=== PATIENT | male | born 1985 | race Caucasian/White ===

== ENCOUNTER → 2021-10-01 12:04 | Outpatient (CLI) | payer SELFPAY ==
[2021-10-01 13:49] LABS: Alanine Aminotransferase 20 IU/L (<50); Albumin 4.7 g/dL (3.5-5.0); Albumin Globulin Ratio 1.5 (1.0-2.8); Alkaline Phosphatase 71 U/L (38-126); Aspartate Aminotransferase 27 IU/L (17-59); BUN Creatinine Ratio 13.6 (6-22); Bilirubin Total 0.6 mg/dL (0.2-1.3); Blood Urea Nitrogen 11 mg/dL (9-20); Calcium 9.5 mg/dL (8.4-10.2); Carbon Dioxide 30 mmol/L (22-32); Chloride 105 mmol/L (98-107); Creatine Kinase 65 U/L (55-170); Estimated Glomerular Filt Rate > 60.0 mL/min (>60); Globulin 3.1 g/dL (1.7-4.1); Glucose 122 mg/dL (70-100); HEMOLYSIS < 15 (0-50); Potassium 3.4 mmol/L (3.4-5.1); Sodium 141 mmol/L (137-145); Total Protein 7.8 g/dL (6.3-8.2)
[2021-10-01 14:01] LABS: Troponin I < 0.012 ng/mL (0.01-0.034)
[2021-10-01 14:20] LABS: TSH w/ Reflex to FT4 2.02 uIU/mL (0.47-4.68)
== END ==
PROVIDERS: Referring Provider Physician Assistant; Visit Provider Physician Assistant
DX: R00.0 Tachycardia, unspecified (principal)
CPT/HCPCS: 36415; 80053; 82550; 84443; 84484

== ENCOUNTER 2021-11-02 11:54 | Emergency (ER) | payer OTHER, SELFPAY ==
[2021-11-02 12:17] VITALS: PULSE 102; RESP 19; O2SAT 95
[2021-11-02 12:30] VITALS: BP 132/85; BP 132/95; PULSE 104; PULSE 108; RESP 18; RESP 24; TEMP 37.3; O2SAT 96; BMI 23.7
--- NOTE | 2021-11-02 12:31 | DI.RAD.S_ITS ---
PROCEDURE: XR CHEST 1V INDICATIONS: chest pain TECHNIQUE: One view of the chest was acquired. COMPARISON: None. FINDINGS: Surgical changes and devices: None. Lungs and pleura: Biapical opacities are likely scars. No pleural effusions or pneumothorax. Mediastinum: Mediastinal contours appear normal. Heart size is normal. Bones and chest wall: No suspicious bony lesions. Overlying soft tissues appear unremarkable. IMPRESSION: 1. No acute cardiopulmonary disease. 2. Biapical scars. Dictated by: Manuelito Shelley M.D. on 11/02/2021 at 12:50 Approved by: Manuelito Shelley M.D. on 11/02/2021 at 12:51
[2021-11-02 13:00] VITALS: BP 146/92; PULSE 94; RESP 17; O2SAT 97
[2021-11-02 13:11] LABS: INR 1.2 (0.9-1.3); Prothrombin Time 13.7 SECONDS (10.1-12.7)
[2021-11-02 13:14] LABS: PTT Partial Thromboplastin Tim 35 SECONDS (26.4-36.2)
[2021-11-02 13:17] LABS: Hematocrit 43.8 % (41-53); Mean Corpuscular HGB Conc 34.2 % (30-36); Mean Corpuscular Hemoglobin 29.9 PG (26-34); Mean Corpuscular Volume 87.4 fL (80-100); Platelet Count 231 X10^3/uL (150-400); Red Blood Cell Count 5.01 X10^6/uL (4.5-5.9); Red Cell Distribution Width 14.2 % (11.6-14.8); White Blood Cell Count 7.4 X10^3/uL (4.5-11.0)
[2021-11-02 13:18] LABS: Alanine Aminotransferase 20 IU/L (<50); Albumin 4.3 g/dL (3.5-5.0); Albumin Globulin Ratio 1.4 (1.0-2.8); Alkaline Phosphatase 72 U/L (38-126); Aspartate Aminotransferase 30 IU/L (17-59); BUN Creatinine Ratio 14.1 (6-22); Bilirubin Total 0.2 mg/dL (0.2-1.3); Blood Urea Nitrogen 11 mg/dL (9-20); Calcium 9.4 mg/dL (8.4-10.2); Carbon Dioxide 30 mmol/L (22-32); Chloride 101 mmol/L (98-107); Estimated Glomerular Filt Rate > 60.0 mL/min (>60); Globulin 3.1 g/dL (1.7-4.1); Glucose 114 mg/dL (70-100); HEMOLYSIS 28 (0-50); Sodium 138 mmol/L (137-145); Total Protein 7.4 g/dL (6.3-8.2)
[2021-11-02 13:24] LABS: COVID19 -Nasal RAPID POSITIVE (Negative)
[2021-11-02 13:25] LABS: Add Manual Diff / Slide Review YES
[2021-11-02 13:26] LABS: Alanine Aminotransferase 19 IU/L (<50); Albumin 4.2 g/dL (3.5-5.0); Albumin Globulin Ratio 1.6 (1.0-2.8); Alkaline Phosphatase 73 U/L (38-126); Aspartate Aminotransferase 27 IU/L (17-59); BUN Creatinine Ratio 15.2 (6-22); Bilirubin Total 0.2 mg/dL (0.2-1.3); Blood Urea Nitrogen 12 mg/dL (9-20); Calcium 9.4 mg/dL (8.4-10.2); Carbon Dioxide 30 mmol/L (22-32); Chloride 101 mmol/L (98-107); Creatine Kinase 43 U/L (55-170); Estimated Glomerular Filt Rate > 60.0 mL/min (>60); Globulin 2.7 g/dL (1.7-4.1); Glucose 112 mg/dL (70-100); HEMOLYSIS 17 (0-50); Lipase 95 U/L (23-300); Magnesium 2.2 mg/dL (1.6-2.3); Potassium 4.2 mmol/L (3.4-5.1); Sodium 138 mmol/L (137-145); Total Protein 6.9 g/dL (6.3-8.2)
[2021-11-02 13:30] VITALS: BP 149/92; PULSE 91; O2SAT 96
[2021-11-02 13:36] LABS: Troponin I < 0.012 ng/mL (0.01-0.034)
[2021-11-02 13:58] LABS: Neutrophils Absolute Manual 5402 /uL (3000-5900); Total Cells Counted 100
[2021-11-02 13:59] LABS: RBC Morphology Normal Morphology
[2021-11-02 14:00] VITALS: BP 130/82; PULSE 90; RESP 13; O2SAT 95
--- NOTE | 2021-11-10 14:15 | ED_ITS ---
HPI - Syncope <Sinai Dean PA-C - Last Filed: 11/10/21 14:27> General Chief Complaint: Syncope Stated Complaint: Anemic, Passed Out Time Seen by Provider: 11/02/21 12:08 Source: patient Mode of arrival: Ambulatory Limitations: no limitations History of Present Illness HPI narrative: 36-year-old undomiciled male presents to the ED status post a syncopal episode from this morning. Patient states he was on the toilet, having a bowel movement, when he felt sweaty, tunnel visioned, nauseous, lightheaded. He endorses that he passed out for a few seconds before regaining consciousness. Patient states he has not been eating or drinking very well over the past few days. Patient denies fever, chills, chest pain, shortness of breath, cough, numbness, tingling, weakness. Patient states that he has been having multiple intermittent episodes of palpitations, tachycardia since August 2021. in the ED, patient denies having palpitations or tachycardia. Related Data Home Medications Medication Instructions Recorded Confirmed albuterol sulfate 90 mcg/actuation 1 inh INHALATION Q4-6H PRN 09/30/21 09/30/21 breath activated powder inhaler Allergies Allergy/AdvReac Type Severity Reaction Status Date / Time fentanyl Allergy Verified 11/02/21 12:29 Review of Systems <Sinai Dean PA-C - Last Filed: 11/10/21 14:27> Review of Systems ROS Unobtainable: All systems reviewed & are unremarkable except as noted in HPI and below Constitutional Constitutional: Denies chills, Denies fatigue, Denies fever(s), Denies frequent falls, Denies lethargy and Denies weakness Comments: Syncope Eyes Eyes: Denies change in vision, Denies eye discharge, Denies irritation and Denies loss of vision ENT Ears, Nose, Mouth, and Throat: Denies change in voice, Denies dizziness, Denies neck pain, Denies sore throat and Denies throat swelling Cardiovascular Cardiovascular: Denies chest pain, Reports rapid heart rate, Denies irregular heart rhythm, Reports lightheadedness, Denies palpitations, Denies dyspnea, Denies dyspnea on exertion and Denies orthopnea Respiratory Respiratory: Denies cough, Denies dyspnea, Denies dyspnea on exertion and Denies wheezing Gastrointestinal Gastrointestinal: Denies abdominal pain, Denies change in bowel habits, Denies diarrhea, Reports nausea and Denies vomiting Genitourinary Genitourinary: Denies hematuria, Denies flank pain, Denies urinary incontinence and Denies urinary urgency Musculoskeletal Musculoskeletal: Denies back pain, Denies muscle weakness, Denies neck pain, Denies numbness and Denies tingling Integumentary/Breasts Skin/Breast: Denies pruritus, Denies erythema, Denies rash and Denies wounds Neurologic Neurologic: Denies behavioral changes, Denies confusion, Denies dizziness, Denies frequent falls, Denies loss of vision, Denies numbness, Denies tingling and Denies weakness Psychiatric Psychiatric: Denies anxiety, Denies behavioral changes, Denies confusion, Denies depression, Denies homicidal ideation and Denies suicidal ideation Endocrine Endocrine: Denies fatigue, Denies flushing and Denies palpitations Hematologic/Lymphatic Hematologic/Lymphatic: Denies easy bruising Allergic/Immunologic Allergic/Immunologic: Denies urticaria, Denies throat swelling and Denies wheezing Patient History <Sinai Dean PA-C - Last Filed: 11/10/21 14:27> Medical History Tachycardia Social History Smoking Status: Former smoker Smoking Status: Former smoker Substance Use Type: does not use Exam <Sinai Dean PA-C - Last Filed: 11/10/21 14:27> Initial Vital Signs Initial Vital Signs: Vital Signs Pulse Rate 102 H 11/02/21 12:17 Respiratory Rate 19 11/02/21 12:17 Pulse Oximetry 95 11/02/21 12:17 Const General: cooperative, healthy appearing and comfortable [facility] Head: normal to inspection Eyes General: appearance normal, both eyes and all related structures Neck Neck: normal visual inspection Chest Chest: normal inspection of the chest Resp Effort & Inspection: normal respiratory effort Auscultation: clear to auscultation bilaterally Cardio Rate: regular rate Rhythm: regular rhythm GI Inspection: normal to inspection Other: abdomen is soft, nontender to palpation, nondistended. No CVA tenderness. General: No CVA tenderness Skin General: no rashes or lesions noted Neuro General: patient alert, patient awake and patient oriented x3 <Amanda Puri DO - Last Filed: 11/22/21 08:16> Initial Vital Signs Initial Vital Signs: Vital Signs Pulse Rate 102 H 11/02/21 12:17 Respiratory Rate 19 11/02/21 12:17 Pulse Oximetry 95 11/02/21 12:17 MDM - Syncope <Sinai Dean PA-C - Last Filed: 11/10/21 14:27> Medical Records Attestation: I reviewed the patient's medical records. Lab Data Attestation: I reviewed the patient's lab results. Lab results narrative: Labs within normal limits Result diagrams: 11/02/21 12:55 11/02/21 12:55 Labs: Lab Results 11/02/21 11/02/21 11/02/21 Range/Units 12:14 12:55 12:55 WBC 7.4 (4.5-11.0) X10^3/uL RBC 5.01 (4.5-5.9) X10^6/uL Hgb 15.0 (13.5-17.5) g/dL Hct 43.8 (41-53) % MCV 87.4 (80-100) fL MCH 29.9 (26-34) PG MCHC 34.2 (30-36) % RDW 14.2 (11.6-14.8) % Plt Count 231 (150-400) X10^3/uL Neut % (Auto) Not Reportable Lymph % (Auto) Not Reportable Mcdowell % (Auto) Not Reportable Eos % (Auto) Not Reportable Baso % (Auto) Not Reportable Lymph # (Auto) Not Reportable Mcdowell # (Auto) Not Reportable Baso # (Auto) Not Reportable Total Counted 100 Seg Neutrophils % 73.0 H (38-70) % Lymphocytes % (Manual) 12.0 L (25-45) % Monocytes % (Manual) 14.0 H (2-11) % Basophils % (Manual) 1.0 (0-1) % Neutrophils # (Manual) 5402 (0080-9838) /uL RBC Morphology Normal morphology PT (10.1-12.7) SECONDS INR (0.9-1.3) APTT (26.4-36.2) SECONDS Sodium 138 (137-145) mmol/L Potassium 4.2 (3.4-5.1) mmol/L Chloride 101 (98-107) mmol/L Carbon Dioxide 30 (22-32) mmol/L BUN 12 (9-20) mg/dL Creatinine 0.79 (0.66-1.25) mg/dL Estimated GFR > 60.0 (>60) mL/min BUN/Creatinine Ratio 15.2 (6-22) Glucose 112 H (70-100) mg/dL Calcium 9.4 (8.4-10.2) mg/dL Magnesium 2.2 (1.6-2.3) mg/dL Total Bilirubin 0.2 (0.2-1.3) mg/dL AST 27 (17-59) IU/L ALT 19 (<50) IU/L Alkaline Phosphatase 73 (38-126) U/L Total Creatine Kinase 43 L (55-170) U/L CK-MB (CK-2) TNP CK-MB (CK-2) Rel Index TNP Troponin I < 0.012 (0.01-0.034) ng/mL Total Protein 6.9 (6.3-8.2) g/dL Albumin 4.2 (3.5-5.0) g/dL Globulin 2.7 (1.7-4.1) g/dL Albumin/Globulin Ratio 1.6 (1.0-2.8) Lipase 95 (23-300) U/L SARS-CoV-2 (PCR) Positive H (Negative) Blood Type Rho(D) Type Antibody Screen 11/02/21 11/02/21 11/02/21 Range/Units 12:55 12:55 12:55 WBC (4.5-11.0) X10^3/uL RBC (4.5-5.9) X10^6/uL Hgb (13.5-17.5) g/dL Hct (41-53) % MCV (80-100) fL MCH (26-34) PG MCHC (30-36) % RDW (11.6-14.8) % Plt Count (150-400) X10^3/uL Neut % (Auto) Lymph % (Auto) Mcdowell % (Auto) Eos % (Auto) Baso % (Auto) Lymph # (Auto) Mcdowell # (Auto) Baso # (Auto) Total Counted Seg Neutrophils % (38-70) % Lymphocytes % (Manual) (25-45) % Monocytes % (Manual) (2-11) % Basophils % (Manual) (0-1) % Neutrophils # (Manual) (3241-9444) /uL RBC Morphology PT 13.7 H (10.1-12.7) SECONDS INR 1.2 (0.9-1.3) APTT 35 (26.4-36.2) SECONDS Sodium 138 (137-145) mmol/L Potassium 4.0 (3.4-5.1) mmol/L Chloride 101 (98-107) mmol/L Carbon Dioxide 30 (22-32) mmol/L BUN 11 (9-20) mg/dL Creatinine 0.78 (0.66-1.25) mg/dL Estimated GFR > 60.0 (>60) mL/min BUN/Creatinine Ratio 14.1 (6-22) Glucose 114 H (70-100) mg/dL Calcium 9.4 (8.4-10.2) mg/dL Magnesium (1.6-2.3) mg/dL Total Bilirubin 0.2 (0.2-1.3) mg/dL AST 30 (17-59) IU/L ALT 20 (<50) IU/L Alkaline Phosphatase 72 (38-126) U/L Total Creatine Kinase (55-170) U/L CK-MB (CK-2) CK-MB (CK-2) Rel Index Troponin I (0.01-0.034) ng/mL Total Protein 7.4 (6.3-8.2) g/dL Albumin 4.3 (3.5-5.0) g/dL Globulin 3.1 (1.7-4.1) g/dL Albumin/Globulin Ratio 1.4 (1.0-2.8) Lipase (23-300) U/L SARS-CoV-2 (PCR) (Negative) Blood Type Cancelled Rho(D) Type Cancelled Antibody Screen Cancelled Imaging Data Chest x-ray: Radiologist's Impression: PROCEDURE:? XR CHEST 1V ? INDICATIONS:? chest pain ? TECHNIQUE:? One view of the chest was acquired.? ? COMPARISON:? None. ? FINDINGS:? ? Surgical changes and devices:? None.? ? Lungs and pleura:? Biapical opacities are likely scars.? No pleural effusions or pneumothorax.? ? Mediastinum:? Mediastinal contours appear normal.? Heart size is normal.? ? Bones and chest wall:? No suspicious bony lesions.? Overlying soft tissues appear unremarkable.? ? IMPRESSION:? ? 1. No acute cardiopulmonary disease. 2. Biapical scars. ? ? Dictated by: Manuelito Shelley M.D. on 11/02/2021 at 12:50 ? ? ECG Data Interpretation: Nonspecific ST-T changes. regular rate, rhythm MDM Narrative Medical decision making narrative: 36-year-old undomiciled male presents to the ED status post a syncopal episode from this morning. concern for ACS versus arrhythmia versus infection versus COVID-19 infection. will order labs, EKG, chest x-ray, COVID-19 test. labs within normal limits. COVID-19 positive. Patient discharged home with ED return precautions, isolation / quarantine guidelines. Patient verbalized understanding. <Amanda Puri, DO - Last Filed: 11/22/21 08:16> Lab Data Labs: Lab Results 11/02/21 11/02/21 11/02/21 Range/Units 12:14 12:55 12:55 WBC 7.4 (4.5-11.0) X10^3/uL RBC 5.01 (4.5-5.9) X10^6/uL Hgb 15.0 (13.5-17.5) g/dL Hct 43.8 (41-53) % MCV 87.4 (80-100) fL MCH 29.9 (26-34) PG MCHC 34.2 (30-36) % RDW 14.2 (11.6-14.8) % Plt Count 231 (150-400) X10^3/uL Neut % (Auto) Not Reportable Lymph % (Auto) Not Reportable Mcdowell % (Auto) Not Reportable Eos % (Auto) Not Reportable Baso % (Auto) Not Reportable Lymph # (Auto) Not Reportable Mcdowell # (Auto) Not Reportable Baso # (Auto) Not Reportable Total Counted 100 Seg Neutrophils % 73.0 H (38-70) % Lymphocytes % (Manual) 12.0 L (25-45) % Monocytes % (Manual) 14.0 H (2-11) % Basophils % (Manual) 1.0 (0-1) % Neutrophils # (Manual) 5402 (6456-3777) /uL RBC Morphology Normal morphology PT (10.1-12.7) SECONDS INR (0.9-1.3) APTT (26.4-36.2) SECONDS Sodium 138 (137-145) mmol/L Potassium 4.2 (3.4-5.1) mmol/L Chloride 101 (98-107) mmol/L Carbon Dioxide 30 (22-32) mmol/L BUN 12 (9-20) mg/dL Creatinine 0.79 (0.66-1.25) mg/dL Estimated GFR > 60.0 (>60) mL/min BUN/Creatinine Ratio 15.2 (6-22) Glucose 112 H (70-100) mg/dL Calcium 9.4 (8.4-10.2) mg/dL Magnesium 2.2 (1.6-2.3) mg/dL Total Bilirubin 0.2 (0.2-1.3) mg/dL AST 27 (17-59) IU/L ALT 19 (<50) IU/L Alkaline Phosphatase 73 (38-126) U/L Total Creatine Kinase 43 L (55-170) U/L CK-MB (CK-2) TNP CK-MB (CK-2) Rel Index TNP Troponin I < 0.012 (0.01-0.034) ng/mL Total Protein 6.9 (6.3-8.2) g/dL Albumin 4.2 (3.5-5.0) g/dL Globulin 2.7 (1.7-4.1) g/dL Albumin/Globulin Ratio 1.6 (1.0-2.8) Lipase 95 (23-300) U/L SARS-CoV-2 (PCR) Positive H (Negative) Blood Type Rho(D) Type Antibody Screen 11/02/21 11/02/21 11/02/21 Range/Units 12:55 12:55 12:55 WBC (4.5-11.0) X10^3/uL RBC (4.5-5.9) X10^6/uL Hgb (13.5-17.5) g/dL Hct (41-53) % MCV (80-100) fL MCH (26-34) PG MCHC (30-36) % RDW (11.6-14.8) % Plt Count (150-400) X10^3/uL Neut % (Auto) Lymph % (Auto) Mcdowell % (Auto) Eos % (Auto) Baso % (Auto) Lymph # (Auto) Mcdowell # (Auto) Baso # (Auto) Total Counted Seg Neutrophils % (38-70) % Lymphocytes % (Manual) (25-45) % Monocytes % (Manual) (2-11) % Basophils % (Manual) (0-1) % Neutrophils # (Manual) (6646-9672) /uL RBC Morphology PT 13.7 H (10.1-12.7) SECONDS INR 1.2 (0.9-1.3) APTT 35 (26.4-36.2) SECONDS Sodium 138 (137-145) mmol/L Potassium 4.0 (3.4-5.1) mmol/L Chloride 101 (98-107) mmol/L Carbon Dioxide 30 (22-32) mmol/L BUN 11 (9-20) mg/dL Creatinine 0.78 (0.66-1.25) mg/dL Estimated GFR > 60.0 (>60) mL/min BUN/Creatinine Ratio 14.1 (6-22) Glucose 114 H (70-100) mg/dL Calcium 9.4 (8.4-10.2) mg/dL Magnesium (1.6-2.3) mg/dL Total Bilirubin 0.2 (0.2-1.3) mg/dL AST 30 (17-59) IU/L ALT 20 (<50) IU/L Alkaline Phosphatase 72 (38-126) U/L Total Creatine Kinase (55-170) U/L CK-MB (CK-2) CK-MB (CK-2) Rel Index Troponin I (0.01-0.034) ng/mL Total Protein 7.4 (6.3-8.2) g/dL Albumin 4.3 (3.5-5.0) g/dL Globulin 3.1 (1.7-4.1) g/dL Albumin/Globulin Ratio 1.4 (1.0-2.8) Lipase (23-300) U/L SARS-CoV-2 (PCR) (Negative) Blood Type Cancelled Rho(D) Type Cancelled Antibody Screen Cancelled Discharge Plan Departure Patient Disposition: Home Clinical Impression: COVID-19 Instructions: DI for Syncope in Adults (Fainting) Activity Restrictions/Additional Instructions: You were evaluated in the ED today for passing out and palpitations. Your COVID test was positive. The rest of your labs, EKG were normal. Your symptoms are likely due to the COVID infection. Return to the ED if you have any trouble breathing or you experience chest pain. Please follow the CDC guidelines of isolating and quarantine ink for 5 days since the onset of his symptoms, followed by 5 days of masking in public. Prescriptions: No Action albuterol sulfate 90 mcg/actuation aerosol powdr breath activated 1 inh inhalation Q4-6H [id number] Referrals: Miscellaneous,Doctor, [Primary Care Provider] - <Amanda Puri DO - Last Filed: 11/22/21 08:16> Cosign ED Attending Cosignature Attestation: I was immediately available in the department for consultation. Documentation has been reviewed.
== END 2021-11-02 14:21 | disposition home or self-care (01) ==
PROVIDERS: Emergency Provider Student in an Organized Health Care Education/Training Program
DX: U07.1 COVID-19 (principal); R55 Syncope and collapse; R07.9 Chest pain, unspecified
CPT/HCPCS: 36415; 71045; 80053; 82550; 83690; 83735; 84484; 85007; 85025; 85610; 85730; 87635; 93005; 93010; 99283; 99284; C9803

== ENCOUNTER 2023-11-24 18:29 | Emergency (ER) | payer SELFPAY ==
[2023-11-24 18:39] VITALS: BP 148/76; PULSE 92; RESP 15; TEMP 36.7; O2SAT 98; BMI 25.7
--- NOTE | 2023-11-24 18:43 | DI.RAD.S_ITS ---
PROCEDURE: XR FINGER LT MIN 2V INDICATIONS: finger injury TECHNIQUE: AP hand, 2 views of the 3rd finger(s) acquired. COMPARISON: None. FINDINGS: Bones: Extra-articular fracture through the 3rd proximal phalanx shaft. [place] palmar angulation. Soft tissues: No suspicious soft tissue calcifications. IMPRESSION: Extra-articular, angulated fracture of the 3rd proximal phalanx shaft. Dictated by: Bret Canchola M.D. on 11/24/2023 at 19:39 Approved by: Bret Canchola M.D. on 11/24/2023 at 19:40
--- NOTE | 2023-11-24 19:23 | ED.GENADULT ---
HPI - General Adult General Chief complaint: Extremity Injury, Upper Stated complaint: L MID FINGER INJURY-REQUEST AN XRAY Time Seen by Provider: 11/24/23 18:46 Source: patient Mode of arrival: Ambulatory History of Present Illness HPI narrative: Patient is a 38-year-old male here for evaluation of a injury to his left middle finger. He states that he was at home. He was trying to break a chair by throwing it down on the ground when he injured the finger. He states that he did dislocate the 1st joint of the finger but relocated it himself at home. He did have swelling. He thought when he was moving his finger that he could feel and hear a click. He reports no other injuries from the event. Related Data Home Medications Medication Instructions Recorded Confirmed albuterol sulfate 90 mcg/actuation 1 inh inhalation Q4-6H PRN 09/30/21 09/30/21 breath activated powder inhaler Allergies Allergy/AdvReac Type Severity Reaction Status Date / Time fentanyl Allergy Verified 11/24/23 18:39 Review of Systems Constitutional Constitutional: Reports system reviewed and no additional complaints, except as documented Musculoskeletal Musculoskeletal: Reports system reviewed and no additional complaints, except as documented Integumentary/Breasts Skin/Breast: Reports system reviewed and no additional complaints, except as documented Neurologic Neurologic: Reports system reviewed and no additional complaints, except as documented Patient History Medical History Tachycardia Social History Smoking Status: Former smoker Smoking Status: Former smoker alcohol intake frequency: a few times a month Substance Use Type: does not use Exam Initial Vital Signs Initial Vital Signs: Vital Signs Temperature 98.0 F 11/24/23 18:39 Pulse Rate 92 H 11/24/23 18:39 Respiratory Rate 15 11/24/23 18:39 Blood Pressure 148/76 H 11/24/23 18:39 Pulse Oximetry 98 11/24/23 18:39 Oxygen Delivery Method Room Air 11/24/23 18:39 Skin General: no rashes or lesions noted Neuro Sensory Exam: no sensory deficits noted Extrem Other: No overt dislocations noted. He does have tenderness to palpation of the area between the MCP and PIP joint of his left middle finger. Does have swelling to the left middle finger. Hand is unremarkable. Procedures Orthopedic Splinting/Casting Injury #1: Side: left Upper Extremity Injury Location: finger Upper Extremity Immobilizer: aluminum form splint Post splinting neuro exam: no change Post splinting vascular exam: no change Placed by: Nursing Course Orders Ordered: ED Orders 11/24/23 18:43 XR finger LT min 2V Stat Vital Signs Vital signs: Vital Signs - 8 hr 11/24/23 18:39 Temperature 98.0 F Pulse Rate 92 H Respiratory Rate 15 Blood Pressure 148/76 H Pulse Oximetry 98 Oxygen Delivery Method Room Air Medical Decision Making Imaging Data Extremity x-ray #1: Radiologist's Impression: PROCEDURE: XR FINGER LT MIN 2V INDICATIONS: finger injury TECHNIQUE: AP hand, 2 views of the 3rd finger(s) acquired. COMPARISON: None. FINDINGS: Bones: Extra-articular fracture through the 3rd proximal phalanx shaft. [place] palmar angulation. Soft tissues: No suspicious soft tissue calcifications. IMPRESSION: Extra-articular, angulated fracture of the 3rd proximal phalanx shaft. MDM Narrative Medical decision making narrative: Neurovascularly intact. No dislocations noted on the x-ray nor on exam. Does have a fracture of the proximal phalanx of the left middle finger. He was placed in an aluminum splint. Was instructed that he needed to contact Orthopedic surgery for a follow-up. He was given return precautions. He expressed understanding and agreement. Discharge Plan Departure Patient Disposition: Home Clinical Impression: Finger fracture, left Instructions: Finger Fracture Activity Restrictions/Additional Instructions: The splint that was placed today does need to be left in place. You do need to keep it dry. I do recommend that you follow-up with the orthopedic doctor at the number provided below. You can take Tylenol/ibuprofen for discomfort. Return to the emergency department for new symptoms. Drummer Olsen Prescriptions: No Action albuterol sulfate 90 mcg/actuation aerosol powdr breath activated 1 inh inhalation Q4-6H PRN Referrals: Miscellaneous,MD Madhavi [Primary Care Provider] - Cristóbal Patterson MD [Physician] - Stand Alone Forms: Patient Portal/API
== END 2023-11-24 20:13 | disposition home or self-care (01) ==
PROVIDERS: Emergency Provider Emergency Medicine
DX: S62.613A Displaced fracture of proximal phalanx of left middle finger, initial encounter for closed fracture (principal); X58.XXXA Exposure to other specified factors, initial encounter
CPT/HCPCS: 29130; 73140; 99281; 99283

== ENCOUNTER 2023-11-25 16:53 | Emergency (ER) | payer SELFPAY ==
[2023-11-25 16:54] VITALS: BP 153/89; PULSE 85; RESP 16; TEMP 37.4; O2SAT 97; BMI 25.7
--- NOTE | 2023-11-25 17:09 | ED.UPPEXIN ---
HPI - Extremity Injury (Upper) <Praveen Garcia PA-C - Last Filed: 11/25/23 19:02> General Chief Complaint: Extremity Injury, Upper Stated Complaint: hand injury Time Seen by Provider: 11/25/23 17:08 Source: patient Mode of arrival: Ambulatory History of Present Illness HPI narrative: This is a 38-year-old male presents emergency department due to concerns that his known left 3rd digit fracture was to displaced after he looked at the x-rays. He was requesting a repeat evaluation to determine alignment. He states that he called the physician's office of the orthopedist Dr. Patterson whose office stated that he was only available for rehab but patient would like to be seen sooner to make sure it ?is healing right?. Denies any new pain or numbness. Related Data Home Medications Medication Instructions Recorded Confirmed albuterol sulfate 90 mcg/actuation 1 inh inhalation Q4-6H PRN 09/30/21 09/30/21 breath activated powder inhaler Allergies Allergy/AdvReac Type Severity Reaction Status Date / Time fentanyl Allergy Verified 11/24/23 18:39 Review of Systems <Praveen Garcia PA-C - Last Filed: 11/25/23 19:02> Review of Systems Narrative: GENERAL: Denies chills, fatigue, malaise, fever, sweats. HEENT: Denies sinus pain, ear pain, sore throat, difficulty swallowing, dizziness. RESPIRATORY: Denies dyspnea, cough, wheezing, hemoptysis, sputum. CARDIOVASCULAR: Denies chest pain, palpitations, orthopnea, edema, GASTROINTESTINAL: Denies nausea, vomiting, abdominal pain, diarrhea, constipation, melena. : Denies dysuria, frequency, incontinence, hematuria, urinary retention. MUSCULOSKELETAL: denies weakness, joint pain, or bony pain SKIN: Denies rash, skin lesions, or other NEUROLOGIC: Denies weakness, headache, numbness, change in speech, confusion, seizures, incoordination. PSYCHIATRIC: No concerning psychosocial issues. 12 point review of systems is negative except for those stated above Patient History <Praveen Garcia PA-C - Last Filed: 11/25/23 19:02> Medical History Tachycardia Social History Smoking Status: Former smoker Smoking Status: Former smoker alcohol intake frequency: a few times a month Substance Use Type: does not use Exam <CHIRAG Cannon Last Filed: 11/25/23 19:02> Narrative Exam Narrative: GENERAL: Well-developed patient, in mild distress. HEAD: Atraumatic. Normocephalic. EYES: Pupils equal round and reactive. Extraocular motions intact. No scleral icterus. No injection or drainage. ENT: Nose without bleeding, purulent drainage. Throat without erythema, tonsillar hypertrophy or exudate. Airway patent. NECK: Trachea midline. Non tender EXTREMITIES: Aluminum splint is in place to the left 3rd digit. Neurovascularly intact. NEURO: AOx3. SKIN: No rash or erythema of visible areas Initial Vital Signs Initial Vital Signs: Vital Signs Temperature 99.3 F 11/25/23 16:54 Pulse Rate 85 11/25/23 16:54 Respiratory Rate 16 11/25/23 16:54 Blood Pressure 153/89 H 11/25/23 16:54 Pulse Oximetry 97 11/25/23 16:54 Oxygen Delivery Method Room Air 11/25/23 16:54 <Judson Lizarraga DO - Last Filed: 11/25/23 19:13> Initial Vital Signs Initial Vital Signs: Vital Signs Temperature 99.3 F 11/25/23 16:54 Pulse Rate 85 11/25/23 16:54 Respiratory Rate 16 11/25/23 16:54 Blood Pressure 153/89 H 11/25/23 16:54 Pulse Oximetry 97 11/25/23 16:54 Oxygen Delivery Method Room Air 11/25/23 16:54 Course <CHIRAG Cannon Last Filed: 11/25/23 19:02> Orders Ordered: ED Orders 11/25/23 17:20 XR finger LT min 2V Stat 11/25/23 18:17 XR finger LT min 2V Stat Vital Signs Vital signs: Vital Signs - 8 hr 11/25/23 16:54 11/25/23 18:56 Temperature 99.3 F Pulse Rate 85 56 L Respiratory Rate 16 18 Blood Pressure 153/89 H 167/79 H Pulse Oximetry 97 98 Oxygen Delivery Method Room Air Room Air <DO Thomas Diamond Last Filed: 11/25/23 19:13> Orders Ordered: ED Orders 11/25/23 17:20 XR finger LT min 2V Stat 11/25/23 18:17 XR finger LT min 2V Stat Vital Signs Vital signs: Vital Signs - 8 hr 11/25/23 16:54 11/25/23 18:56 Temperature 99.3 F Pulse Rate 85 56 L Respiratory Rate 16 18 Blood Pressure 153/89 H 167/79 H Pulse Oximetry 97 98 Oxygen Delivery Method Room Air Room Air MDM - Extremity Injury (Upper) <Praveen Garcia PA-C - Last Filed: 11/25/23 19:02> Imaging Data Extremity x-ray #1: Radiologist's Impression: [address] [address] XRay Report Signed Patient: Mohsen Allen MR#: [id number] : 1985 Acct:[id number] Age/Sex: 38 / M Date of Service: 11/25/23 Loc: ED Accession Number: [id number] Procedure: XR finger LT min 2V Ordering Provider: Praveen Garcia P.A-C PROCEDURE: XR FINGER LT MIN 2V INDICATIONS: Check alignment of known fracture TECHNIQUE: Single lateral view of the 3rd finger(s) acquired. COMPARISON: [facility], , XR FINGER LT MIN 2V, 11/24/2023, 19:05. FINDINGS: Bones: Again noted is comminuted oblique fracture through 3rd proximal phalangeal shaft with volar displacement of the fractured fragment not significantly changed from prior study. No new fracture or dislocation. No suspicious bony lesions. Soft tissues: No suspicious soft tissue calcifications. IMPRESSION: Comminuted and displaced 3rd proximal phalangeal shaft fracture with surrounding soft tissue swelling. No significant changes in 3rd digit alignment from previous study. Dictated by: Hayden Chirinos M.D. on 11/25/2023 at 18:06 Approved by: Hayden Chirinos M.D. on 11/25/2023 at 18:07 [facility] Narrative Medical decision making narrative: ED course: This is a 38-year-old male presents to the emergency department for repeat evaluation for left 3rd digit fracture. Patient was concerned with the amount of displacement found the x-rays after you reviewed. Multiple attempts were made to reduce the phalanx fracture to anatomic alignment. Fracture was able to be reduced with traction but multiple attempts were made to apply a finger splint to keep the bone alignment in place. After each splinting on repeat x-ray there still appeared to be a small amount of displacement although seems intervally improved from the original. Patient will follow up with Orthopedics for further evaluation. Assistance very much appreciated. CC: Left finger pain Complicating co-morbidities: None Data collected from: Previous notes Medical records reviewed: Patient was seen here yesterday due to a left middle finger injury. X-ray showed an extra-articular angulated fracture of the 3rd proximal phalanx shaft. Placed in an aluminum splint. Instructed to follow up with Orthopedic surgery. Differential considered, but not limited to: Fracture, neurovascular injury Exam documented above, pertinent findings include: Neurovascularly intact through the left 3rd digit. Lab Test results independently reviewed as above. Pertinent findings: None obtained Imaging studies independently reviewed: Repeat x-ray show slight interval improvement of alignment Scores Used: None MIPS Elements: None Consultations: None Treatments: Multiple reduction attempts Re-evaluations: None Discussion: Discussed plan with the patient was comfortable with the plan Diagnosis: Left 3rd finger fracture Disposition: see below, along with detailed discharge instructions that have been reviewed with patient as well as indications for ED re-evaluation and additional outpatient follow up Discharge Plan Departure Patient Disposition: Home Clinical Impression: Finger fracture, left Activity Restrictions/Additional Instructions: Thank you for coming to the [facility] Emergency Department today. We were able to slightly improve the alignment of the bone in your finger. Please keep the splint in place. Please call Dr. Yin office on Tuesday to request an evaluation for repeat x-rays. Please return to the emergency department if you develop any numbness, significant new or worsening pain, or any other concerning signs or symptoms. I hope you feel better soon. Please follow up with your primary care provider within a week if your symptoms continue. If you do not have a primary care provider please contact the [facility] Resource line at [phone]. They will ask some questions about your medical history and help you get set up with a provider in the community. Prescriptions: No Action albuterol sulfate 90 mcg/actuation aerosol powdr breath activated 1 inh inhalation Q4-6H PRN Referrals: Miscellaneous,MD Madhavi [Primary Care Provider] - Moshe Yin MD [Physician] - (f/u mildly displaced phalanx fracture, thank you!) Stand Alone Forms: Patient Portal/API ED Sign-out <Judson Lizarraga DO - Last Filed: 11/25/23 19:13> Cosign ED Attending Clarice Attestation: I was consulted by the APC for this patient. I did not have direct clinical interaction with the patient. Advised the APC that he could attempt at a better reduction of his finger fracture if desired.
--- NOTE | 2023-11-25 17:20 | DI.RAD.S_ITS ---
PROCEDURE: XR FINGER LT MIN 2V INDICATIONS: Check alignment of known fracture TECHNIQUE: Single lateral view of the 3rd finger(s) acquired. COMPARISON: [facility], , XR FINGER LT MIN 2V, 11/24/2023, 19:05. FINDINGS: Bones: Again noted is comminuted oblique fracture through 3rd proximal phalangeal shaft with volar displacement of the fractured fragment not significantly changed from prior study. No new fracture or dislocation. No suspicious bony lesions. Soft tissues: No suspicious soft tissue calcifications. IMPRESSION: Comminuted and displaced 3rd proximal phalangeal shaft fracture with surrounding soft tissue swelling. No significant changes in 3rd digit alignment from previous study. Dictated by: Hayden Chirinos M.D. on 11/25/2023 at 18:06 Approved by: Hayden Chirinos M.D. on 11/25/2023 at 18:07
--- NOTE | 2023-11-25 18:17 | DI.RAD.S_ITS ---
PROCEDURE: XR FINGER LT MIN 2V INDICATIONS: fracture TECHNIQUE: Single lateral view of the 3rd finger(s) acquired. COMPARISON: [facility], , XR FINGER LT MIN 2V, 11/25/2023, 17:24. FINDINGS: Bones: Comminuted and displaced 3rd metacarpal shaft fracture remains unchanged in appearance and overall alignment. No new fracture or dislocation. No suspicious bony lesions. Soft tissues: No suspicious soft tissue calcifications. IMPRESSION: Comminuted and displaced 3rd metacarpal shaft fracture unchanged in alignment and appearance compared to earlier study. Dictated by: Hayden Chirinos M.D. on 11/25/2023 at 19:09 Approved by: Hayden Chirinos M.D. on 11/25/2023 at 19:10
[2023-11-25 18:56] VITALS: BP 167/79; PULSE 56; RESP 18; O2SAT 98
== END 2023-11-25 19:00 | disposition home or self-care (01) ==
PROVIDERS: Emergency Provider Physician Assistant Medical
DX: S62.613A Displaced fracture of proximal phalanx of left middle finger, initial encounter for closed fracture (principal)
CPT/HCPCS: 73140; 99283